=== PATIENT | male | born 1975 | race Caucasian/White ===

== ENCOUNTER → 2018-06-10 | Outpatient (CLI) | payer OTHER ==
--- NOTE | 2018-06-10 11:17 | DIREP ---
PROCEDURE:XRAY HAND MIN 3 VW-RT COMPARISON:None. INDICATIONS:M79.641 PAIN IN RIGHT HAND, PAIN X 2 DAYS, SWOLLEN, NO KNOWN INJURY FINDINGS: BONES:Normal. JOINTS:Normal. SOFT TISSUES:Normal. OTHER:No additional findings. CONCLUSION:No fracture or dislocation is demonstrated. Dictated by: Amaury Perales M.D. on 06/10/2018 at 11:15 AM
== END | disposition home or self-care (01) ==
LOC: RAD 10:26
PROVIDERS: ATTEND Nurse Practitioner Adult Health
DX: M79.641 Pain in right hand (principal)
CPT/HCPCS: 73130-RT